=== PATIENT | male | born 1950 | race Caucasian/White ===

== ENCOUNTER 2020-11-26 13:56 | Inpatient (IN) | payer OTHER ==
[~2020-11-26] VITALS: Ht 173 cm; Wt 123.1 kg
[~2020-11-26 13:56] MED LIST: ACULAR 0.5% OP S5 ML EYERT; ALDACTONE50 MG PO; AMIODARONE HCL200 MG PO; ANORO ELLIPTA1 EACH INH; ENTRESTO 49 MG1 EACH PO; FLOMAX 0.4 MG0.4 MG PO; HYDROCODON-ACE1 EAC2 PO; ISORDIL TAB 2020 MG PO; LASIX40 MG PO; LIPITOR80 MG PO; NOVOLOG FL100 UNIT/1 INJ; PEPCID20 MG PO; SYNTHROID150 MCG PO; TOPROL XL50 MG PO; XARELTO20 MG PO
[2020-11-26 14:53] LABS: HEMOGLOBIN 11.9 gm/dl (14.0-17.5); RED BLOOD COUNT 4.6 M/UL (4.20-5.50); WHITE BLOOD COUNT 8.8 K/UL (4.5-11.0)
[2020-11-26 15:17] LABS: BUN/CREATININE RATIO 23 (0-10)
--- NOTE | 2020-11-26 22:14 | NUR ---
PT UNABLE TO REMEMBER HOME MED LIST. FAMILY TO SEND LIST, PT'S PHARMACY WILL BE CALLED SOON THEY OPEN. WILL CONTINUE TO MONITOR.
[2020-11-27 02:33] LABS: HEMOGLOBIN 11.4 gm/dl (14.0-17.5); RED BLOOD COUNT 4.45 M/UL (4.20-5.50)
[2020-11-27] MEDS ORDERED: NITROSTAT0.4 MG SL (12:00)
[2020-11-27] MEDS ORDERED: VITAMIN D350 MC3 PO (15:22)
[2020-11-27] MEDS ORDERED: LEVEMIR FL100 UNIT/1 SC (15:24)
[2020-11-27] MEDS ORDERED: DAILY VITE1 EACH PO (15:26)
[2020-11-28 09:13] LABS: HEMOGLOBIN 11.2 gm/dl (14.0-17.5); RED BLOOD COUNT 4.49 M/UL (4.20-5.50); WHITE BLOOD COUNT 7.8 K/UL (4.5-11.0)
[2020-11-29 03:42] LABS: HEMOGLOBIN 11.5 gm/dl (14.0-17.5); RED BLOOD COUNT 4.49 M/UL (4.20-5.50); WHITE BLOOD COUNT 8.7 K/UL (4.5-11.0)
[2020-11-30 04:09] LABS: BUN/CREATININE RATIO 14 (0-10)
[2020-11-30 05:09] LABS: HEMOGLOBIN 11.3 gm/dl (14.0-17.5); RED BLOOD COUNT 4.38 M/UL (4.20-5.50); WHITE BLOOD COUNT 8.4 K/UL (4.5-11.0)
[2020-12-01 06:06] LABS: HEMOGLOBIN 11.5 gm/dl (14.0-17.5); RED BLOOD COUNT 4.43 M/UL (4.20-5.50); WHITE BLOOD COUNT 8.9 K/UL (4.5-11.0)
[2020-12-01 06:32] LABS: BUN/CREATININE RATIO 23 (0-10)
[2020-12-02 06:51] LABS: HEMOGLOBIN 10.5 gm/dl (14.0-17.5); RED BLOOD COUNT 4.21 M/UL (4.20-5.50); WHITE BLOOD COUNT 8.5 K/UL (4.5-11.0)
[2020-12-02 07:16] LABS: BUN/CREATININE RATIO 21 (0-10)
--- NOTE | 2020-12-02 17:38 | NUR ---
1630 WEISS PLACED BUTTOCK WASHED WITH SOAP AND WATER DRIED AND ALLEVYN PLACED. ALSO GROIN CLEANED WITH SOAP AND WATER RINSED AND DRIED
[2020-12-03 06:29] LABS: RED BLOOD COUNT 4.28 M/UL (4.20-5.50); WHITE BLOOD COUNT 8.8 K/UL (4.5-11.0)
[2020-12-03 07:06] LABS: BUN/CREATININE RATIO 19 (0-10)
[2020-12-04 03:24] LABS: HEMOGLOBIN 10.8 gm/dl (14.0-17.5); RED BLOOD COUNT 4.17 M/UL (4.20-5.50); WHITE BLOOD COUNT 7.7 K/UL (4.5-11.0)
[2020-12-04 03:46] LABS: BUN/CREATININE RATIO 20 (0-10)
[2020-12-05 03:23] LABS: HEMOGLOBIN 10.4 gm/dl (14.0-17.5); RED BLOOD COUNT 4.08 M/UL (4.20-5.50); WHITE BLOOD COUNT 7.6 K/UL (4.5-11.0)
[2020-12-05 03:35] LABS: BUN/CREATININE RATIO 18 (0-10)
[2020-12-06 07:12] LABS: BUN/CREATININE RATIO 16 (0-10)
[2020-12-07] MEDS ORDERED: LASIX40 MG PO (08:48)
[2020-12-07] MEDS ORDERED: HYDROCODON-ACE1 EAC2 PO (08:48)
[2020-12-07] MEDS ORDERED: INVANZ 1 GM VIAL1 GM IV (08:52)
[2020-12-07] MEDS ORDERED: LOTRIMIN CREAM15 GM TOP (08:52)
== END 2020-12-07 12:53 | DRG 226 ==
LOC: ER1 13:56 → CDU 16:14 → MED SURG 4 16:14
PROVIDERS: Family Medicine; Internal Medicine; Internal Medicine Infectious Disease; Physician Assistant; Physician Assistant Medical; ADMIT Internal Medicine
PROC: B24BZZZ Ultrasonography of Heart with Aorta (ICD-10-PCS; 2020-11-27)
PROC: 0JH609Z Insertion of Cardiac Resynchronization Defibrillator Pulse Generator into Chest Subcutaneous Tissue and Fascia, Open Approach (ICD-10-PCS; principal; 2020-12-01)
PROC: 02HL3KZ Insertion of Defibrillator Lead into Left Ventricle, Percutaneous Approach (ICD-10-PCS; 2020-12-01)
PROC: 02PA3MZ Removal of Cardiac Lead from Heart, Percutaneous Approach (ICD-10-PCS; 2020-12-01)
PROC: 0JPT0PZ Removal of Cardiac Rhythm Related Device from Trunk Subcutaneous Tissue and Fascia, Open Approach (ICD-10-PCS; 2020-12-01)
DX: I11.0 Hypertensive heart disease with heart failure (principal); J96.01 Acute respiratory failure with hypoxia; N30.00 Acute cystitis without hematuria; Z16.12 Extended spectrum beta lactamase (ESBL) resistance; Z68.41 Body mass index [BMI] 40.0-44.9, adult; N17.9 Acute kidney failure, unspecified; I25.5 Ischemic cardiomyopathy; I50.23 Acute on chronic systolic (congestive) heart failure; I48.0 Paroxysmal atrial fibrillation; Z20.822 Contact with and (suspected) exposure to COVID-19; I25.10 Atherosclerotic heart disease of native coronary artery without angina pectoris; B96.20 Unspecified Escherichia coli [E. coli] as the cause of diseases classified elsewhere; I27.20 Pulmonary hypertension, unspecified; N40.0 Benign prostatic hyperplasia without lower urinary tract symptoms; I44.7 Left bundle-branch block, unspecified; J44.9 Chronic obstructive pulmonary disease, unspecified; E78.5 Hyperlipidemia, unspecified; L89.322 Pressure ulcer of left buttock, stage 2; E86.0 Dehydration; R94.4 Abnormal results of kidney function studies; I08.1 Rheumatic disorders of both mitral and tricuspid valves; E11.9 Type 2 diabetes mellitus without complications; Z79.01 Long term (current) use of anticoagulants; I25.2 Old myocardial infarction; Z79.890 Hormone replacement therapy; Z79.4 Long term (current) use of insulin; Z79.899 Other long term (current) drug therapy; Z88.8 Allergy status to other drugs, medicaments and biological substances; Z87.891 Personal history of nicotine dependence; Z95.5 Presence of coronary angioplasty implant and graft; D50.9 Iron deficiency anemia, unspecified; Z90.49 Acquired absence of other specified parts of digestive tract; Z98.49 Cataract extraction status, unspecified eye; Z82.49 Family history of ischemic heart disease and other diseases of the circulatory system; Z83.3 Family history of diabetes mellitus; E87.6 Hypokalemia; E66.01 Morbid (severe) obesity due to excess calories; I27.81 Cor pulmonale (chronic)
CPT/HCPCS: ECHO; 33225; 36415; 71045; 80048; 80053; 81001; 82550; 82553; 82962; 83036; 83735; 83874; 83880; 84132; 84439; 84443; 84484; 85025; 85027; 87077; 87086; 87186; 87635; 93005; 93306; 93641; 94640; 94664; 94760; 96372; 96374; 97110; 97110-GP-CQ; 97116; 97116-GP-CQ; 97162; 97166; 97530; 97530-GP-CQ; 97535; 99152; 99153; 99285; C1769; C1882; C1900; J0696; J1120; J1205; J1335; J1644; J1940; J2250; J3010; J3370; J7030; J7040; J7050; J7070; Q9965; U0002

== ENCOUNTER 2020-12-31 01:57 | Emergency (ER) | payer OTHER ==
[~2020-12-31 01:57] MED LIST changes: +DAILY VITE1 EACH PO; +INVANZ 1 GM VIAL1 GM IV; +LEVEMIR FL100 UNIT/1 SC; +LOTRIMIN CREAM15 GM TOP; +NITROSTAT0.4 MG SL; +VITAMIN D350 MC3 PO
[2020-12-31 02:58] LABS: HEMOGLOBIN 11.1 gm/dl (14.0-17.5); RED BLOOD COUNT 4.09 M/UL (4.20-5.50); WHITE BLOOD COUNT 6.2 K/UL (4.5-11.0)
[2020-12-31] MEDS ORDERED: K-DUR TAB 20 M20 MEQ PO (04:34)
== END 2020-12-31 08:25 | disposition home or self-care (01) ==
LOC: ER1 01:57
PROVIDERS: Emergency Medicine
DX: E87.6 Hypokalemia (principal); J44.9 Chronic obstructive pulmonary disease, unspecified; I13.0 Hypertensive heart and chronic kidney disease with heart failure and stage 1 through stage 4 chronic kidney disease, or unspecified chronic kidney disease; I50.9 Heart failure, unspecified; I48.91 Unspecified atrial fibrillation; K21.9 Gastro-esophageal reflux disease without esophagitis; N18.9 Chronic kidney disease, unspecified; E11.22 Type 2 diabetes mellitus with diabetic chronic kidney disease; Z88.8 Allergy status to other drugs, medicaments and biological substances
CPT/HCPCS: 80053; 81001; 82140; 85025; 87077; 87086; 87186; 99285

== ENCOUNTER → 2021-02-06 | Outpatient (CLI) | payer OTHER ==
[~2021-02-06] MED LIST changes: +ALDACTONE 25MG25 MG PO; +BUMETANIDE1 MG PO; +CHRONULAC20 GM/30 M PO; +DEPAKOTE125 MG PO; +DESITIN CREAM 660 GM EXT; +EFFEXOR XR75 MG PO; +ENTRESTO 24 MG1 EACH PO; +IPRATROPIU0.2 MG/1 M INH; +K-DUR TAB 20 M20 MEQ PO; +PERFOROMIS20 MCG/21 INH; +PULMICORT0.5 MG/2 M INH; +SYNTHROID175 MCG PO; +TYLENOL EXTRA500 MG PO; +VANCOMYCIN HCL125 MG PO
== END ==
LOC: LBRF 18:39
DX: N39.0 Urinary tract infection, site not specified (principal); R33.9 Retention of urine, unspecified
CPT/HCPCS: 81001; 87077; 87086; 87186

== ENCOUNTER 2021-02-13 03:57 | Inpatient (IN) | payer OTHER, MEDICARE ==
[~2021-02-13] VITALS: Ht 172.7 cm; Wt 89.0 kg
[~2021-02-13 03:57] MED LIST changes: -ALDACTONE 25MG25 MG PO; -BUMETANIDE1 MG PO; -CHRONULAC20 GM/30 M PO; -DEPAKOTE125 MG PO; -DESITIN CREAM 660 GM EXT; -EFFEXOR XR75 MG PO; -ENTRESTO 24 MG1 EACH PO; -IPRATROPIU0.2 MG/1 M INH; -PERFOROMIS20 MCG/21 INH; -PULMICORT0.5 MG/2 M INH; -SYNTHROID175 MCG PO; -TYLENOL EXTRA500 MG PO; -VANCOMYCIN HCL125 MG PO
[2021-02-13 04:38] LABS: HEMOGLOBIN 11.8 gm/dl (14.0-17.5); RED BLOOD COUNT 4.13 M/UL (4.20-5.50); WHITE BLOOD COUNT 11.8 K/UL (4.5-11.0)
[2021-02-13 08:29] LABS: ADENOVIRUS F 40/41 Not Detected (Negative); ASTROVIRUS Not Detected (Negative); CAMPYLOBACTER Not Detected (Negative); CRYPTOSPORIDIUM Not Detected (Negative); E.COLI 0157 Not Detected (Negative); ENTAMOEBA HISTOLYTICA Not Detected (Negative); ENTEROAGGREGATIVE E.COLI (EAEC Not Detected (Negative); ENTEROPATHOGENIC E.COLI (EPEC) Not Detected (Negative); ENTEROTOXIGENIC E.COLI (ETEC) Not Detected (Negative); GIARDIA LAMBLIA Not Detected (Negative); NOROVIRUS GI/GII Not Detected (Negative); PLESIOMONAS SHIGELLOIDES Not Detected (Negative); ROTOVIRUS A Not Detected (Negative); SALMONELLA Not Detected (Negative); SAPOVIRUS Not Detected (Negative); SHIG/ENTEROINVAS.ECOLI (EIEC) Not Detected (Negative); SHIGA-LIK TOX.PRO.E.COLI (STEC Not Detected (Negative); VIBRIO Not Detected (Negative); VIBRIO CHOLERAE Not Detected (Negative); YERSINIA ENTEROCOLITICA Not Detected (Negative)
[2021-02-13] MEDS ORDERED: SYNTHROID175 MCG PO (09:58)
[2021-02-13] MEDS ORDERED: LASIX40 MG PO (09:58)
[2021-02-13] MEDS ORDERED: EFFEXOR XR75 MG PO (09:59)
[2021-02-13] MEDS ORDERED: K-DUR TAB 20 M20 MEQ PO (09:59)
[2021-02-13] MEDS ORDERED: PERFOROMIS20 MCG/21 INH (10:02)
[2021-02-13] MEDS ORDERED: PULMICORT0.5 MG/2 M INH (10:02)
[2021-02-13] MEDS ORDERED: TYLENOL EXTRA500 MG PO (10:03)
[2021-02-13] MEDS ORDERED: DEPAKOTE125 MG PO (10:04)
[2021-02-13] MEDS ORDERED: ENTRESTO 24 MG1 EACH PO (10:05)
[2021-02-13] MEDS ORDERED: CHRONULAC20 GM/30 M PO (10:06)
[2021-02-13] MEDS ORDERED: HYDROCODON-ACE1 EAC2 PO ×2 (10:06→10:07)
[2021-02-13] MEDS ORDERED: IPRATROPIU0.2 MG/1 M INH (10:52)
[2021-02-13] MEDS ORDERED: DESITIN CREAM 660 GM EXT (10:53)
[2021-02-13] MEDS ORDERED: INVANZ 1 GM VIAL1 GM IV (11:04)
[2021-02-13 12:19] LABS: CLOSTRIDIUM DIFFICILE TOX A/B DETECTED (Negative)
[2021-02-14 03:22] LABS: HEMOGLOBIN 10.9 gm/dl (14.0-17.5); RED BLOOD COUNT 3.85 M/UL (4.20-5.50)
[2021-02-14 03:24] LABS: WHITE BLOOD COUNT 7.7 K/UL (4.5-11.0)
[2021-02-15 05:11] LABS: HEMOGLOBIN 10.3 gm/dl (14.0-17.5); RED BLOOD COUNT 3.66 M/UL (4.20-5.50); WHITE BLOOD COUNT 9.3 K/UL (4.5-11.0)
[2021-02-16 05:39] LABS: BUN/CREATININE RATIO 37 (0-10)
[2021-02-17 04:40] LABS: HEMOGLOBIN 9.3 gm/dl (14.0-17.5); RED BLOOD COUNT 3.32 M/UL (4.20-5.50)
[2021-02-17 04:44] LABS: WHITE BLOOD COUNT 6.6 K/UL (4.5-11.0)
[2021-02-17 05:08] LABS: BUN/CREATININE RATIO 25 (0-10)
--- NOTE | 2021-02-17 06:11 | NUR ---
0547 DR SHIPMAN AWARE OF MORNING PHOS LEVEL. ORDERS RECEIVED, SEE NOV.
[2021-02-17 07:12] LABS: HBSAG SCREEN Negative (Negative); HEP B CORE AB, TOT Negative (Negative); HEP C VIRUS AB <0.1 (0.0-0.9)
[2021-02-17 09:13] LABS: ANTISTREPTOLYSIN O AB 384.5 IU/mL (0.0-200.0); COMPLEMENT C3, SERUM 61 mg/dL (82-167); COMPLEMENT C4, SERUM 22 mg/dL (12-38)
[2021-02-18 05:27] LABS: HEMOGLOBIN 9.6 gm/dl (14.0-17.5); RED BLOOD COUNT 3.38 M/UL (4.20-5.50)
[2021-02-18 06:14] LABS: BUN/CREATININE RATIO 19 (0-10)
[2021-02-19 12:38] LABS: HEMOGLOBIN 10.7 gm/dl (14.0-17.5); WHITE BLOOD COUNT 6.9 K/UL (4.5-11.0)
[2021-02-19 12:39] LABS: RED BLOOD COUNT 3.72 M/UL (4.20-5.50)
[2021-02-19 13:04] LABS: BUN/CREATININE RATIO 13 (0-10)
[2021-02-20 05:57] LABS: HEMOGLOBIN 9.6 gm/dl (14.0-17.5); RED BLOOD COUNT 3.39 M/UL (4.20-5.50)
[2021-02-20 06:20] LABS: BUN/CREATININE RATIO 13 (0-10)
[2021-02-20 16:12] LABS: A/G RATIO 0.8 (0.7-1.7); ALBUMIN 2.7 g/dL (2.9-4.4); ALPHA-1-GLOBULIN 0.3 g/dL (0.0-0.4); ALPHA-2-GLOBULIN 0.8 g/dL (0.4-1.0); ATYPICAL PANCA <1:20 titer (Neg:<1:20); BETA GLOBULIN 0.8 g/dL (0.7-1.3); CYTOPLASMIC (C-ANCA) 1:20 titer (Neg:<1:20); GAMMA GLOBULIN 1.5 g/dL (0.4-1.8); GLOBULIN, TOTAL 3.4 g/dL (2.2-3.9); IMMUNOFIXATION RESULT, SERUM Comment: (.); IMMUNOGLOBULIN A, QN, SERUM 550 mg/dL (61-437); IMMUNOGLOBULIN G, QN, SERUM 1176 mg/dL (603-1613); IMMUNOGLOBULIN M, QN, SERUM 262 mg/dL (15-143); M-SPIKE Not Observed g/dL (Not Observed); PERINUCLEAR (P-ANCA) <1:20 titer (Neg:<1:20); PROTEIN, TOTAL, SERUM 6.1 g/dL (6.0-8.5)
[2021-02-21 04:58] LABS: HEMOGLOBIN 10.4 gm/dl (14.0-17.5); RED BLOOD COUNT 3.63 M/UL (4.20-5.50); WHITE BLOOD COUNT 6.4 K/UL (4.5-11.0)
[2021-02-21 05:14] LABS: BUN/CREATININE RATIO 11 (0-10)
[2021-02-21] MEDS ORDERED: BUMETANIDE1 MG PO (10:54)
[2021-02-21] MEDS ORDERED: ALDACTONE 25MG25 MG PO (10:54)
[2021-02-21] MEDS ORDERED: VANCOMYCIN HCL125 MG PO (10:54)
--- NOTE | 2021-02-21 14:37 | NUR ---
CALLED REPORT TO [facility] PEDRO AT [facility] AT THIS TIME.
== END 2021-02-21 14:49 | DRG 698 ==
LOC: ER1 03:57 → MED SURG 4 06:30 → CDU 06:30 → PROG CARE 09:55 → CCU 09:56 → MED SURG 4 02-18 17:51
PROVIDERS: Family Medicine; Internal Medicine; Internal Medicine Nephrology; ADMIT Internal Medicine
DX: T83.518A Infection and inflammatory reaction due to other urinary catheter, initial encounter (principal); N17.0 Acute kidney failure with tubular necrosis; R65.21 Severe sepsis with septic shock; A04.4 Other intestinal Escherichia coli infections; Z16.12 Extended spectrum beta lactamase (ESBL) resistance; I42.9 Cardiomyopathy, unspecified; J96.10 Chronic respiratory failure, unspecified whether with hypoxia or hypercapnia; E87.2 Acidosis; N39.0 Urinary tract infection, site not specified; I13.0 Hypertensive heart and chronic kidney disease with heart failure and stage 1 through stage 4 chronic kidney disease, or unspecified chronic kidney disease; I48.19 Other persistent atrial fibrillation; I50.20 Unspecified systolic (congestive) heart failure; Y83.8 Other surgical procedures as the cause of abnormal reaction of the patient, or of later complication, without mention of misadventure at the time of the procedure; E87.5 Hyperkalemia; E03.9 Hypothyroidism, unspecified; R19.7 Diarrhea, unspecified; L89.322 Pressure ulcer of left buttock, stage 2; L89.312 Pressure ulcer of right buttock, stage 2; E87.6 Hypokalemia; N18.30 Chronic kidney disease, stage 3 unspecified; E11.22 Type 2 diabetes mellitus with diabetic chronic kidney disease; I25.10 Atherosclerotic heart disease of native coronary artery without angina pectoris; Y92.89 Other specified places as the place of occurrence of the external cause; Z95.810 Presence of automatic (implantable) cardiac defibrillator; Z90.49 Acquired absence of other specified parts of digestive tract; Z98.49 Cataract extraction status, unspecified eye; Z82.49 Family history of ischemic heart disease and other diseases of the circulatory system
CPT/HCPCS: 36415; 51701; 80048; 80053; 81001; 82378; 82550; 82553; 82570; 82784; 82962; 83520; 83615; 83883; 84132; 84153; 84155; 84156; 84165; 84300; 84443; 85025; 85027; 86038; 86060; 86160; 86256; 86334; 86704; 86706; 86708; 86803; 87324; 87340; 87449; 87507; 89050; 93005; 94640; 94664; 94760; 96374; 97162; 97530-GP-CQ; 99285; A6212; C9113; J1335; J2405; J3480; J7030; U0002

== ENCOUNTER → 2021-03-06 | Outpatient (CLI) | payer OTHER ==
[~2021-03-06] MED LIST changes: +ALDACTONE 25MG25 MG PO; +BUMETANIDE1 MG PO; +CHRONULAC20 GM/30 M PO; +DEPAKOTE125 MG PO; +DESITIN CREAM 660 GM EXT; +EFFEXOR XR75 MG PO; +ENTRESTO 24 MG1 EACH PO; +IPRATROPIU0.2 MG/1 M INH; +PERFOROMIS20 MCG/21 INH; +PULMICORT0.5 MG/2 M INH; +SYNTHROID175 MCG PO; +TYLENOL EXTRA500 MG PO; +VANCOMYCIN HCL125 MG PO
== END ==
LOC: HEART 5 08:38
DX: R06.02 Shortness of breath (principal); Z79.899 Other long term (current) drug therapy; R94.2 Abnormal results of pulmonary function studies
CPT/HCPCS: 94060; 94729

== ENCOUNTER 2021-04-25 22:59 | Emergency (ER) | payer OTHER | END 2021-04-25 23:05 | disposition E | LOC: ER1 22:59 | DX: I46.9 Cardiac arrest, cause unspecified (principal) | CPT/HCPCS: 99285 ==